=== PATIENT | male | born 1955 | race Caucasian/White ===

== ENCOUNTER 2018-02-24 13:49 | Inpatient (IN) | payer MEDICAID, OTHER ==
[~2018-02-24] VITALS: Ht 175.3 cm; Wt 73.0 kg
[~2018-02-24 13:49] MED LIST: AMLO2.5T PO
[2018-02-24 14:45] LABS: Hematocrit 18.2 % (41.0-53.0); Mean Corpuscular Hemoglobin 28.5 pg (28.0-32.0); Mean Corpuscular Hgb Conc. 31.9 g/dL (32.0-36.0); Mean Corpuscular Volume 89.3 fL (80.0-100.0); Red Blood Cells 2.04 10^6/uL (4.5-5.90); White Blood Cell 6.5 10^3/uL (4.4-10.8)
[2018-02-24 14:55] LABS: Platelet Count (auto) 50 10^3/uL (140-450)
[2018-02-24 14:58] LABS: Hemoglobin 5.8 g/dL (13.5-17.5)
[2018-02-24 14:59] LABS: Band Neutrophils % (manual) 0; Basophils % (manual) 0 (0.0-2.0); Blast Cells 0; Metamyelocytes % 0; Myelocytes % 0; Promyelocytes % 0; Reactive Lymphocytes 0
[2018-02-24 15:13] LABS: Albumin 2.3 g/dL (3.4-5.0); BUN/Creatinine Ratio 18.9; Bilirubin, Total 2.2 mg/dL (0.2-1.0); Calcium 7.6 mg/dL (8.5-10.1)
[2018-02-24 15:22] LABS: Potassium 2.2 mmol/L (3.5-5.1)
[2018-02-24] MEDS ORDERED: POTASSIUM EFFERVESENT TAB 25 MEQ PO ONE (16:00)
[2018-02-24 16:39] LABS: Eosinophils % (manual) 1 (0-7); Lymphocytes % (manual) 8 (10.0-50.0); Monocytes % (manual) 14 (0-12)
[2018-02-24 18:03] LABS: Lactic Acid w/Reflex 2.6 mmol/L (0.4-2.0)
[2018-02-24] MEDS ORDERED: SODIUM CHLORIDE 0.9% 2,000 ML IV ONE (18:45)
[2018-02-24] MEDS ORDERED: LORazepam 2MG/ML-1ML VIAL IV ONE (18:45)
[2018-02-24 20:27] VITALS: BP 92/55
[2018-02-24 20:52] VITALS: BP 92/59
[2018-02-24] MEDS ORDERED: SODIUM CHLORIDE 0.9% 1,000 ML IV SCH (20:59)
[2018-02-24] MEDS ORDERED: ONDANSETRON HCL 4 MG/2 ML VIAL IV PRN (21:00)
[2018-02-24] MEDS ORDERED: ACETAMINOPHEN 325 MG TAB PO PRN (21:00)
[2018-02-24] MEDS ORDERED: MORPHINE SULF INJ 2 MG/ML SYRINGE 1ML IV PRN (21:00)
[2018-02-24] MEDS ORDERED: NITROGLYCERIN 0.4 MG SL TAB SL PRN (21:00)
[2018-02-24] MEDS ORDERED: cefTRIAXone 1GM/10ml IVPUSH 10 ML IV ONE (21:00)
[2018-02-24 21:07] VITALS: BP 104/60
[2018-02-24 21:22] VITALS: BP 101/77
[2018-02-24] MEDS ORDERED: POTASSIUM CHL 20 Meq TABLET PO ONE (22:15)
[2018-02-24 22:19] VITALS: BP 97/63
[2018-02-24 23:06] VITALS: BP 102/71
[2018-02-24] MEDS: PHENYTOIN SODIUM 100 MG CAP PO SCH (23:16)
[2018-02-24] MEDS: FAMOTIDINE 20 MG TAB PO SCH (23:17)
[2018-02-25] VITALS (14 sets, daily range): BP systolic 100–124; BP diastolic 65–80
[2018-02-25] MEDS ORDERED: OMEP20TA PO (02:54)
[2018-02-25] MEDS ORDERED: ESOM40CA39 PO (02:55)
[2018-02-25] MEDS ORDERED: PHE100C PO (02:56)
[2018-02-25] MEDS ORDERED: FOLI1TAB6 PO (02:56)
[2018-02-25] MEDS ORDERED: KEP500T PO (02:57)
[2018-02-25 05:22] LABS: Albumin 2.3 g/dL (3.4-5.0); BUN/Creatinine Ratio 16.2; Bilirubin, Total 1.7 mg/dL (0.2-1.0); Calcium 7.2 mg/dL (8.5-10.1); Total Protein 5.9 g/dL (6.4-8.2)
[2018-02-25 05:33] LABS: Urine Bacteria NONE SEEN /hpf (None Seen); Urine Blood Negative /uL (Negative); Urine Specific Gravity 1.017 (1.001-1.035); Urine WBC 5 /hpf (0 - 3)
[2018-02-25] MEDS: PHENYTOIN SODIUM 100 MG CAP PO SCH ×3 (05:35→22:16)
[2018-02-25] MEDS ORDERED: POTASSIUM EFFERVESENT TAB 25 MEQ PO ONE (11:00)
[2018-02-25] MEDS: cefTRIAXone 1GM/10ml IVPUSH 10 ML IV SCH (11:08)
[2018-02-25] MEDS: ASPirin 81 mg TAB PO SCH (11:09)
[2018-02-25] MEDS: FAMOTIDINE 20 MG TAB PO SCH ×2 (11:09→22:16)
[2018-02-25 11:22] LABS: Eosinophils # (auto) 0.2 uL; Hemoglobin 9.3 g/dL (13.5-17.5); Monocytes # (auto) 0.6 uL; Nucleated Red Blood Cells % 2.2 %
[2018-02-25 11:25] LABS: Basophils # (auto) 0.1 uL; Basophils % (auto) 2.5 % (0.0-2.0); Eosinophils % (auto) 3.5 % (0.0-7.0); Hematocrit 28.3 % (41.0-53.0); Lymphocytes # (auto) 0.9 uL; Lymphocytes % (auto) 18.5 % (10.0-50.0); Mean Corpuscular Hemoglobin 29.4 pg (28.0-32.0); Mean Corpuscular Hgb Conc. 32.9 g/dL (32.0-36.0); Mean Corpuscular Volume 89.3 fL (80.0-100.0); Monocytes % (auto) 12.5 % (0.0-12.0); Neutrophils # (auto) 3.1 uL; Platelet Count (auto) 54 10^3/uL (140-450); Red Blood Cells 3.17 10^6/uL (4.5-5.90); Red Cell Distribution Width 19.1 % (11.8-14.3)
[2018-02-25] MEDS: SOD CHL 0.45% WITH 20MEQ KCL 1,000 ML IV SCH ×3 (11:40→23:16)
[2018-02-25 11:58] LABS: % Iron Saturation 7.9 % (20-55)
[2018-02-25] MEDS ORDERED: THIAMINE INJ 100 MG, MULTIPLE VITAMIN 10 ML, FOLIC ACID 1 MG, MAGNESIUM SULF SDV 50% 8 ... IV SCH ×5 (12:00)
[2018-02-25 12:08] LABS: Ferritin 36.6 ng/mL (10-322)
[2018-02-25 12:09] LABS: Folate (Folic Acid) 13.82 ng/mL (5.38-24)
[2018-02-25] MEDS: chlordiazePOXIDE HCL 25 MG CAP PO SCH ×2 (14:43→22:16)
[2018-02-25] MEDS: LACTULOSE 20Gm/30ML SOLN PO SCH (22:16)
[2018-02-25] MEDS: HYDROcodone-ACET 5/325MG TAB PO PRN (23:16)
[2018-02-26 04:47] VITALS: BP 136/83
[2018-02-26 06:39] LABS: Anion Gap 11 (5-15); Calcium 7.3 mg/dL (8.5-10.1); Carbon Dioxide 17 mmol/L (21-32); Chloride 121 mmol/L (98-107); Glucose 77 mg/dL (74-106); Potassium 3.4 mmol/L (3.5-5.1); Sodium 149 mmol/L (136-145)
[2018-02-26] MEDS: chlordiazePOXIDE HCL 25 MG CAP PO SCH (06:44)
[2018-02-26] MEDS: PHENYTOIN SODIUM 100 MG CAP PO SCH ×3 (06:44→22:06)
[2018-02-26 06:46] LABS: BUN/Creatinine Ratio 10.3; Blood Urea Nitrogen 6 mg/dL (7-18); GFR African American 182 mL/min; GFR Non-African American 150 mL/min
[2018-02-26 09:10] LABS: Basophils # (auto) 0.1 uL; Basophils % (auto) 1.3 % (0.0-2.0); Eosinophils # (auto) 0.3 uL; Hemoglobin 9.1 g/dL (13.5-17.5); Monocytes # (auto) 0.5 uL; Neutrophils # (auto) 2.7 uL; White Blood Cell 4.3 10^3/uL (4.4-10.8)
[2018-02-26 09:12] LABS: Eosinophils % (auto) 6.6 % (0.0-7.0); Hematocrit 27.9 % (41.0-53.0); Lymphocytes # (auto) 0.8 uL; Lymphocytes % (auto) 17.6 % (10.0-50.0); Mean Corpuscular Hemoglobin 29.2 pg (28.0-32.0); Mean Corpuscular Hgb Conc. 32.7 g/dL (32.0-36.0); Mean Corpuscular Volume 89.1 fL (80.0-100.0); Monocytes % (auto) 12.2 % (0.0-12.0); Neutrophils % (auto) 62.3 % (37.0-80.0); Nucleated Red Blood Cells % 1.7 %; Platelet Count (auto) 54 10^3/uL (140-450); Red Blood Cells 3.14 10^6/uL (4.5-5.90); Red Cell Distribution Width 19.7 % (11.8-14.3)
[2018-02-26 09:17] VITALS: BP 121/78
[2018-02-26] MEDS: cefTRIAXone 1GM/10ml IVPUSH 10 ML IV SCH (09:40)
[2018-02-26] MEDS: LACTULOSE 20Gm/30ML SOLN PO SCH ×2 (09:40→22:04)
[2018-02-26] MEDS: FAMOTIDINE 20 MG TAB PO SCH ×2 (09:40→22:06)
[2018-02-26] MEDS: ASPirin 81 mg TAB PO SCH (09:40)
[2018-02-26] MEDS: HYDROcodone-ACET 5/325MG TAB PO PRN ×3 (09:41→22:05)
[2018-02-26] MEDS: SOD CHL 0.45% WITH 20MEQ KCL 1,000 ML IV SCH ×2 (09:41→17:58)
[2018-02-26] MEDS ORDERED: SODIUM FERR GLUC 62.5MG/5ML 125 MG in SODIUM CHL 0.9% 100 ML IV ONE ×2 (10:00→12:00)
[2018-02-26] MEDS ORDERED: POTASSIUM EFFERVESENT TAB 25 MEQ PO ONE (10:00)
[2018-02-26] MEDS: SODIUM BICARBONATE 650 MG TAB PO SCH ×2 (10:57→22:04)
[2018-02-26 13:00] VITALS: BP 103/63
[2018-02-26 17:09] VITALS: BP 105/73
[2018-02-26] MEDS: FERROUS SULFATE 325 MG TAB PO SCH (17:55)
[2018-02-26] MEDS: MULTIPLE VITAMINS W/ MINERALS TAB PO SCH (17:55)
[2018-02-26 22:00] VITALS: BP 120/86
[2018-02-26] MEDS: ASCORBIC ACID 500 MG TAB PO SCH (22:06)
[2018-02-27] MEDS: SOD CHL 0.45% WITH 20MEQ KCL 1,000 ML IV SCH ×3 (04:07→22:19)
[2018-02-27 04:47] VITALS: BP 125/78
[2018-02-27] MEDS: PHENYTOIN SODIUM 100 MG CAP PO SCH ×3 (05:54→21:24)
[2018-02-27 08:37] VITALS: BP 108/71
[2018-02-27] MEDS: cefTRIAXone 1GM/10ml IVPUSH 10 ML IV SCH (09:03)
[2018-02-27] MEDS: FERROUS SULFATE 325 MG TAB PO SCH ×2 (09:03→18:00)
[2018-02-27] MEDS: SODIUM BICARBONATE 650 MG TAB PO SCH ×2 (09:04→22:00)
[2018-02-27] MEDS: LACTULOSE 20Gm/30ML SOLN PO SCH ×2 (09:04→22:00)
[2018-02-27] MEDS: ASPirin 81 mg TAB PO SCH (09:04)
[2018-02-27] MEDS: MULTIPLE VITAMINS W/ MINERALS TAB PO SCH (09:05)
[2018-02-27] MEDS: FAMOTIDINE 20 MG TAB PO SCH ×2 (09:05→22:00)
[2018-02-27] MEDS: ASCORBIC ACID 500 MG TAB PO SCH ×2 (09:05→22:00)
[2018-02-27] MEDS: chlordiazePOXIDE HCL 25 MG CAP PO SCH ×2 (10:00→22:00)
[2018-02-27] MEDS ORDERED: chlordiazePOXIDE HCL 25 MG CAP PO SCH (10:00)
[2018-02-27 11:35] LABS: Hematocrit 27.6 % (41.0-53.0); Hemoglobin 8.9 g/dL (13.5-17.5); Mean Corpuscular Hemoglobin 28.8 pg (28.0-32.0); Mean Corpuscular Hgb Conc. 32.1 g/dL (32.0-36.0); Mean Corpuscular Volume 89.6 fL (80.0-100.0); Platelet Count (auto) 65 10^3/uL (140-450); Red Blood Cells 3.08 10^6/uL (4.5-5.90); White Blood Cell 3.1 10^3/uL (4.4-10.8)
[2018-02-27 11:45] LABS: Red Cell Distribution Width 20.3 % (11.8-14.3)
[2018-02-27 11:46] LABS: Band Neutrophils % (manual) 0; Basophils % (manual) 0 (0.0-2.0); Blast Cells 0; Metamyelocytes % 0; Myelocytes % 0; Promyelocytes % 0; Reactive Lymphocytes 0
[2018-02-27 11:53] LABS: BUN/Creatinine Ratio 9.1; Calcium 7.1 mg/dL (8.5-10.1); Potassium 3.5 mmol/L (3.5-5.1)
[2018-02-27 12:27] VITALS: BP 102/70
[2018-02-27 12:28] LABS: Eosinophils % (manual) 7 (0-7); Lymphocytes % (manual) 15 (10.0-50.0); Monocytes % (manual) 12 (0-12)
[2018-02-27] MEDS: HYDROcodone-ACET 5/325MG TAB PO PRN (13:03)
[2018-02-27 16:20] VITALS: BP 106/68
[2018-02-27 22:05] VITALS: BP 122/91
[2018-02-28 05:14] VITALS: BP 134/76
[2018-02-28] MEDS: SOD CHL 0.45% WITH 20MEQ KCL 1,000 ML IV SCH ×2 (05:40→16:00)
[2018-02-28] MEDS: PHENYTOIN SODIUM 100 MG CAP PO SCH ×3 (05:57→23:12)
[2018-02-28] MEDS: HYDROcodone-ACET 5/325MG TAB PO PRN ×3 (06:03→23:14)
[2018-02-28] MEDS ORDERED: chlordiazePOXIDE HCL 25 MG CAP PO SCH (07:00)
[2018-02-28 07:50] LABS: BUN/Creatinine Ratio 11.1; Calcium 7.5 mg/dL (8.5-10.1); Potassium 3.9 mmol/L (3.5-5.1)
[2018-02-28 07:56] LABS: Hematocrit 31.6 % (41.0-53.0); Hemoglobin 9.5 g/dL (13.5-17.5); Mean Corpuscular Hemoglobin 28.8 pg (28.0-32.0); Mean Corpuscular Volume 95.9 fL (80.0-100.0); Platelet Count (auto) 86 10^3/uL (140-450); Red Blood Cells 3.29 10^6/uL (4.5-5.90); White Blood Cell 3.1 10^3/uL (4.4-10.8)
[2018-02-28 07:58] LABS: Red Cell Distribution Width 21.2 % (11.8-14.3)
[2018-02-28 08:01] LABS: Band Neutrophils % (manual) 0; Basophils % (manual) 0 (0.0-2.0); Blast Cells 0; Metamyelocytes % 0; Myelocytes % 0; Promyelocytes % 0; Reactive Lymphocytes 0
[2018-02-28] MEDS: FERROUS SULFATE 325 MG TAB PO SCH ×2 (08:26→18:00)
[2018-02-28] MEDS: cefTRIAXone 1GM/10ml IVPUSH 10 ML IV SCH (08:27)
[2018-02-28] MEDS: ASPirin 81 mg TAB PO SCH ×2 (08:27→11:17)
[2018-02-28 09:00] VITALS: BP 122/83
[2018-02-28 09:27] LABS: Eosinophils % (manual) 6 (0-7); Lymphocytes % (manual) 24 (10.0-50.0); Monocytes % (manual) 13 (0-12)
[2018-02-28] MEDS: SODIUM BICARBONATE 650 MG TAB PO SCH ×2 (11:16→23:12)
[2018-02-28] MEDS: LACTULOSE 20Gm/30ML SOLN PO SCH ×2 (11:16→23:11)
[2018-02-28] MEDS: MULTIPLE VITAMINS W/ MINERALS TAB PO SCH (11:17)
[2018-02-28] MEDS: ASCORBIC ACID 500 MG TAB PO SCH ×2 (11:17→23:13)
[2018-02-28] MEDS: FAMOTIDINE 20 MG TAB PO SCH ×2 (11:17→23:13)
[2018-02-28 13:00] VITALS: BP 98/54
[2018-02-28] MEDS: chlordiazePOXIDE HCL 25 MG CAP PO SCH ×2 (13:46→23:12)
[2018-02-28 17:25] VITALS: BP 100/64
[2018-02-28 22:16] VITALS: BP 109/68
[2018-03-01] MEDS: SOD CHL 0.45% WITH 20MEQ KCL 1,000 ML IV SCH ×4 (00:02→23:09)
[2018-03-01 05:37] LABS: Hematocrit 31.7 % (41.0-53.0); Mean Corpuscular Hemoglobin 28.5 pg (28.0-32.0); Mean Corpuscular Hgb Conc. 31.5 g/dL (32.0-36.0); Mean Corpuscular Volume 90.4 fL (80.0-100.0); Platelet Count (auto) 98 10^3/uL (140-450); Red Blood Cells 3.51 10^6/uL (4.5-5.90); White Blood Cell 2.8 10^3/uL (4.4-10.8)
[2018-03-01 05:43] LABS: INR 1.09 (0.9-1.15); Partial Thromboplastin Time 28.4 sec (23.78-33.04); Prothrombin Time 11.6 sec (9.27-12.13)
[2018-03-01 05:48] VITALS: BP 108/72
[2018-03-01] MEDS: PHENYTOIN SODIUM 100 MG CAP PO SCH ×3 (05:50→23:09)
[2018-03-01 05:52] LABS: Red Cell Distribution Width 20.5 % (11.8-14.3)
[2018-03-01 05:53] LABS: Albumin 2.3 g/dL (3.4-5.0); BUN/Creatinine Ratio 7.3; Bilirubin, Total 1.1 mg/dL (0.2-1.0); Blast Cells 0; Metamyelocytes % 0; Myelocytes % 0; Potassium 3.8 mmol/L (3.5-5.1); Promyelocytes % 0; Reactive Lymphocytes 0; Total Protein 6.4 g/dL (6.4-8.2)
[2018-03-01 06:23] LABS: Band Neutrophils % (manual) 1; Lymphocytes % (manual) 30 (10.0-50.0)
[2018-03-01 06:24] LABS: Basophils % (manual) 2 (0.0-2.0); Eosinophils % (manual) 5 (0-7); Monocytes % (manual) 14 (0-12)
[2018-03-01 08:00] VITALS: BP 117/79
[2018-03-01] MEDS: FERROUS SULFATE 325 MG TAB PO SCH ×2 (08:00→17:56)
[2018-03-01] MEDS ORDERED: LIDOCAINE VISCOUS 2% 15ML UD ONE (08:32)
[2018-03-01] MEDS ORDERED: diphenhdrAMINE HCL 50 MG/1 ML VL ONE (08:32)
[2018-03-01] MEDS ORDERED: SODIUM CHLORIDE LOCK 10 ML ONE (08:32)
[2018-03-01] MEDS ORDERED: MIDAZOLAM HCL 5 MG/ML-1ML VIAL ONE (08:32)
[2018-03-01] MEDS ORDERED: fentaNYL CITRATE 100 MCG/2 ML VL ONE (08:33)
[2018-03-01 09:00] VITALS: BP 117/79
[2018-03-01] MEDS: cefTRIAXone 1GM/10ml IVPUSH 10 ML IV SCH (09:07)
[2018-03-01] MEDS: MULTIPLE VITAMINS W/ MINERALS TAB PO SCH (10:00)
[2018-03-01] MEDS: FAMOTIDINE 20 MG TAB PO SCH (10:00)
[2018-03-01] MEDS: ASCORBIC ACID 500 MG TAB PO SCH ×2 (10:00→23:08)
[2018-03-01] MEDS ORDERED: chlordiazePOXIDE HCL 25 MG CAP PO SCH (10:00)
[2018-03-01] MEDS: LACTULOSE 20Gm/30ML SOLN PO SCH ×2 (10:00→23:08)
[2018-03-01 13:00] VITALS: BP 125/69
[2018-03-01] MEDS: SODIUM BICARBONATE 650 MG TAB PO SCH ×2 (14:01→23:09)
[2018-03-01] MEDS: chlordiazePOXIDE HCL 25 MG CAP PO SCH ×2 (14:02→23:09)
[2018-03-01 17:44] VITALS: BP 126/84
[2018-03-01 21:52] VITALS: BP 118/76
[2018-03-01] MEDS: PANTOPRAZOLE 40 MG TAB PO SCH (23:08)
[2018-03-02 05:30] VITALS: BP 113/76
[2018-03-02 06:36] LABS: Hemoglobin 10.5 g/dL (13.5-17.5); White Blood Cell 3.9 10^3/uL (4.4-10.8)
[2018-03-02 06:40] LABS: Hematocrit 33.8 % (41.0-53.0); Mean Corpuscular Hemoglobin 28.2 pg (28.0-32.0); Mean Corpuscular Volume 91.2 fL (80.0-100.0); Platelet Count (auto) 113 10^3/uL (140-450); Red Blood Cells 3.71 10^6/uL (4.5-5.90)
[2018-03-02 06:46] LABS: Red Cell Distribution Width 22.4 % (11.8-14.3)
[2018-03-02 06:47] LABS: Basophils % (manual) 0 (0.0-2.0); Blast Cells 0; Metamyelocytes % 0; Myelocytes % 0; Promyelocytes % 0; Reactive Lymphocytes 0
[2018-03-02] MEDS: PHENYTOIN SODIUM 100 MG CAP PO SCH ×3 (06:55→23:31)
[2018-03-02 07:04] LABS: BUN/Creatinine Ratio 7.8
[2018-03-02 08:00] VITALS: BP 114/60
[2018-03-02] MEDS: SOD CHL 0.45% WITH 20MEQ KCL 1,000 ML IV SCH ×3 (08:34→23:31)
[2018-03-02] MEDS: FERROUS SULFATE 325 MG TAB PO SCH ×2 (08:34→18:18)
[2018-03-02] MEDS: cefTRIAXone 1GM/10ml IVPUSH 10 ML IV SCH (08:34)
[2018-03-02 08:35] LABS: Band Neutrophils % (manual) 2; Eosinophils % (manual) 2 (0-7); Lymphocytes % (manual) 27 (10.0-50.0)
[2018-03-02 08:37] LABS: Monocytes % (manual) 12 (0-12)
[2018-03-02] MEDS: LACTULOSE 20Gm/30ML SOLN PO SCH ×2 (10:00→23:30)
[2018-03-02] MEDS: PANTOPRAZOLE 40 MG TAB PO SCH ×2 (10:00→23:31)
[2018-03-02] MEDS: ASPirin 81 mg TAB PO SCH (11:27)
[2018-03-02] MEDS: chlordiazePOXIDE HCL 25 MG CAP PO SCH ×2 (11:27→23:31)
[2018-03-02] MEDS: ASCORBIC ACID 500 MG TAB PO SCH ×2 (11:27→23:31)
[2018-03-02] MEDS: SODIUM BICARBONATE 650 MG TAB PO SCH ×2 (11:27→23:30)
[2018-03-02] MEDS: MULTIPLE VITAMINS W/ MINERALS TAB PO SCH (11:28)
[2018-03-02 13:02] VITALS: BP 97/69
[2018-03-02 17:00] VITALS: BP 94/64
[2018-03-02 21:52] VITALS: BP 120/70
[2018-03-03 04:55] VITALS: BP 106/76
[2018-03-03] MEDS: PHENYTOIN SODIUM 100 MG CAP PO SCH (06:32)
[2018-03-03] MEDS: SOD CHL 0.45% WITH 20MEQ KCL 1,000 ML IV SCH (07:50)
[2018-03-03 08:00] VITALS: BP 87/64
[2018-03-03] MEDS: FERROUS SULFATE 325 MG TAB PO SCH (08:32)
[2018-03-03] MEDS: cefTRIAXone 1GM/10ml IVPUSH 10 ML IV SCH (08:32)
[2018-03-03 09:00] VITALS: BP 87/64
[2018-03-03] MEDS: LACTULOSE 20Gm/30ML SOLN PO SCH (09:22)
[2018-03-03] MEDS: ASPirin 81 mg TAB PO SCH (09:23)
[2018-03-03] MEDS: chlordiazePOXIDE HCL 25 MG CAP PO SCH (09:23)
[2018-03-03] MEDS: SODIUM BICARBONATE 650 MG TAB PO SCH (09:23)
[2018-03-03] MEDS: MULTIPLE VITAMINS W/ MINERALS TAB PO SCH (09:23)
[2018-03-03] MEDS: ASCORBIC ACID 500 MG TAB PO SCH (09:23)
[2018-03-03] MEDS: PANTOPRAZOLE 40 MG TAB PO SCH (09:23)
== END 2018-03-03 12:00 | disposition home health service (06) | DRG 279 ==
LOC: EDBD 13:49 → ER 13:49 → TELE 13:50 → TELE-CENTR 23:07
PROVIDERS: ADMIT Nurse Practitioner; ATTEND Internal Medicine
PROC: 30233N1 Transfusion of Nonautologous Red Blood Cells into Peripheral Vein, Percutaneous Approach (ICD-10-PCS; 2018-02-24)
PROC: 0DJ08ZZ Inspection of Upper Intestinal Tract, Via Natural or Artificial Opening Endoscopic (ICD-10-PCS; principal; 2018-03-01 11:14)
DX: K72.90 Hepatic failure, unspecified without coma (principal); N17.0 Acute kidney failure with tubular necrosis; G92 Toxic encephalopathy; E43 Unspecified severe protein-calorie malnutrition; D69.6 Thrombocytopenia, unspecified; E87.2 Acidosis; K26.9 Duodenal ulcer, unspecified as acute or chronic, without hemorrhage or perforation; E87.0 Hyperosmolality and hypernatremia; F03.90 Unspecified dementia, unspecified severity, without behavioral disturbance, psychotic disturbance, mood disturbance, and anxiety; E87.1 Hypo-osmolality and hyponatremia; K70.30 Alcoholic cirrhosis of liver without ascites; E87.6 Hypokalemia; F10.229 Alcohol dependence with intoxication, unspecified; E78.5 Hyperlipidemia, unspecified; D53.9 Nutritional anemia, unspecified; G31.9 Degenerative disease of nervous system, unspecified; G40.909 Epilepsy, unspecified, not intractable, without status epilepticus; I10 Essential (primary) hypertension; K21.9 Gastro-esophageal reflux disease without esophagitis; K25.9 Gastric ulcer, unspecified as acute or chronic, without hemorrhage or perforation; K29.70 Gastritis, unspecified, without bleeding; P61.4 Other congenital anemias, not elsewhere classified; Z88.8 Allergy status to other drugs, medicaments and biological substances; D64.3 Other sideroblastic anemias; S42.002A Fracture of unspecified part of left clavicle, initial encounter for closed fracture; W18.39XA Other fall on same level, initial encounter; Y93.89 Activity, other specified; Y92.89 Other specified places as the place of occurrence of the external cause; Y99.8 Other external cause status; Z68.23 Body mass index [BMI] 23.0-23.9, adult
CPT/HCPCS: 36415; 36430; 43235; 70450; 71045; 76705; 80048; 80053; 80185; 80320; 81001; 82140; 82270; 82607; 82728; 82746; 83540; 83550; 83605; 83735; 84132; 84484; 85007; 85025; 85027; 85045; 85610; 85730; 86677; 86850; 86900; 86901; 86920; 87040; 93005; 94761; 96374; 96375; J0696; J2250

== ENCOUNTER 2018-11-18 15:39 | Emergency (ER) | payer MEDICAID ==
[~2018-11-18] VITALS: Ht 170.2 cm; Wt 77.1 kg
[~2018-11-18 15:39] MED LIST changes: -AMLO2.5T PO; +ESOM40CA39 PO; +FOLI1TAB6 PO; +KEP500T PO; +OMEP20TA PO; +PHE100C PO
[2018-11-18] MEDS ORDERED: SODIUM CHLORIDE 0.9% 1,000 ML IV ONE ×2 (15:44)
[2018-11-18] MEDS ORDERED: THIAMINE 100mg/ml INJ (200mg/2ml VIAL) IV ONE (15:45)
[2018-11-18 16:48] LABS: Basophils # (auto) 0.1 uL; Eosinophils # (auto) 0 uL; Eosinophils % (auto) 0.3 % (0.0-7.0); Hemoglobin 11.2 g/dL (13.5-17.5); Monocytes # (auto) 0.5 uL
[2018-11-18 16:49] LABS: Basophils % (auto) 1.4 % (0.0-2.0); Hematocrit 34.5 % (41.0-53.0); Lymphocytes % (auto) 20.1 % (10.0-50.0); Mean Corpuscular Hemoglobin 26.4 pg (28.0-32.0); Mean Corpuscular Hgb Conc. 32.5 g/dL (32.0-36.0); Mean Corpuscular Volume 81.2 fL (80.0-100.0); Monocytes % (auto) 10.6 % (0.0-12.0); Neutrophils # (auto) 3.4 uL; Neutrophils % (auto) 67.6 % (37.0-80.0); Nucleated Red Blood Cells % 0.2 %; Platelet Count (auto) 151 10^3/uL (140-450); Red Blood Cells 4.25 10^6/uL (4.5-5.90)
[2018-11-18 16:56] LABS: Alanine Aminotransferase 29 U/L (16-61); Anion Gap 14 (5-15); Blood Alcohol < 3.0 mg/dL (0-5); Blood Urea Nitrogen 10 mg/dL (7-18); Calcium 9.6 mg/dL (8.5-10.1); Carbon Dioxide 22 mmol/L (21-32); Chloride 95 mmol/L (98-107); Glucose 163 mg/dL (74-106); Potassium 3.3 mmol/L (3.5-5.1); Sodium 131 mmol/L (136-145)
[2018-11-18 17:01] LABS: Alkaline Phosphatase 160 U/L (45-117); Aspartate Aminotransferase 39 U/L (15-37); BUN/Creatinine Ratio 9.1; Bilirubin, Total 0.7 mg/dL (0.2-1.0); GFR African American 87 mL/min; GFR Non-African American 72 mL/min; Total Protein 8.2 g/dL (6.4-8.2)
[2018-11-18 17:15] LABS: Red Cell Distribution Width 24.4 % (11.8-14.3)
[2018-11-18] MEDS ORDERED: POTASSIUM EFFERVESENT TAB 25 MEQ PO ONE (19:30)
[2018-11-18 19:44] LABS: Urine Bacteria NONE SEEN /hpf (None Seen); Urine Blood Negative /uL (Negative); Urine Specific Gravity 1.007 (1.001-1.035); Urine WBC <1 /hpf (0 - 3)
[2018-11-18 20:05] VITALS: BP 152/93
[2018-11-18] MEDS ORDERED: KETOROLAC TROMETH 30 MG/ML 1ML VIAL IV ONE (20:30)
[2018-11-18] MEDS ORDERED: NEOMYCIN-BACITRACIN-POLYM UNITDOSE PKG TOP OINT TOP ONE (21:00)
== END 2018-11-18 21:27 | disposition home or self-care (01) ==
LOC: EDBD 15:39 → ER 15:39
DX: S52.201A Unspecified fracture of shaft of right ulna, initial encounter for closed fracture (principal); G40.909 Epilepsy, unspecified, not intractable, without status epilepticus; F10.20 Alcohol dependence, uncomplicated; K21.9 Gastro-esophageal reflux disease without esophagitis; E78.5 Hyperlipidemia, unspecified; I10 Essential (primary) hypertension; X58.XXXA Exposure to other specified factors, initial encounter; Y93.89 Activity, other specified; Y99.8 Other external cause status; Y92.89 Other specified places as the place of occurrence of the external cause
CPT/HCPCS: 29105; 36415; 70450; 71045; 73090; 80053; 80320; 81001; 84484; 85025; 93005; 96361; 96374; 96375; 99284; J1885; J3411; J7030; 29125